=== PATIENT | male | born 1955 | race Caucasian/White ===

== ENCOUNTER 2017-05-04 03:55 | Inpatient (IN) ==
[2017-04-30 09:24] LABS: MANUAL DIFF NEEDED? NO
--- NOTE | 2017-04-30 09:24 | EKG Report ---
Test Performed on : 04/30/2017 09:10:53 AM Test Reason : PAT Blood Pressure : / mmHG Vent. Rate : 063 BPM Atrial Rate : 063 BPM P-R Int : 142 ms QRS Dur : 084 ms QT Int : 432 ms P-R-T Axes : 058 078 066 degrees QTc Int : 442 ms Normal sinus rhythm. Normal ECG No previous ECGs available Confirmed by Hang Coleman MD ([id number]) on 04/30/2017 12:51:38 PM
[2017-04-30 09:26] LABS: BASO% 0.2 % (0.0-0.8); EOS# 0.08 X1000 (0.0-0.7); EOS% 0.9 % (0.0-10.0); HEMATOCRIT 41.6 % (42.0-52.0); HEMOGLOBIN 13.7 g/dL (14.0-18.0); IMM GRAN# 0.02 X1000 (0.0-0.04); IMM GRAN% 0.2 % (0.0-0.5); LYMPH# 1.95 X1000 (1.2-3.4); LYMPH% 22.7 % (20.5-51.1); MCH 30.2 PG (27-31); MCHC 32.9 g/dL (33-37); MCV 91.6 FL (81-99); MONO# 0.73 X1000 (0.11-0.59); MONO% 8.5 % (1.7-9.3); MPV 9.1 FL (7.4-10.4); NEUT% 67.5 % (42.2-75.2); PLT 257 X1000 (130-400); RBC 4.54 XMIL (4.7-6.1)
[2017-04-30 09:41] LABS: CALCIUM 9.6 mg/dL (8.8-10.2); POTASSIUM 4.7 mmol/L (3.5-5.1)
[2017-05-04] MEDS ORDERED: QUELICIN (DOSE) ONE (08:21)
[2017-05-04] MEDS ORDERED: NORCURON ONE ×2 (08:21→14:05)
[2017-05-04] MEDS ORDERED: SODIUM CHLORIDE 0.9% 10 ML ONE ×3 (08:21→14:05)
[2017-05-04] MEDS ORDERED: KEFZOL ONE (10:05)
[2017-05-04] MEDS ORDERED: HEPARIN ONE (10:06)
[2017-05-04] MEDS ORDERED: NS 0 ML ONE (10:06)
[2017-05-04] MEDS ORDERED: LR 1,000 ML ONE (11:14)
[2017-05-04] MEDS ORDERED: KEFZOL 1 GM/D5W 1 GM/50 ML IVPB ONE (11:14)
[2017-05-04] MEDS ORDERED: DIPRIVAN 1% ONE (11:58)
[2017-05-04] MEDS ORDERED: FENTANYL ONE (11:58)
[2017-05-04] MEDS ORDERED: XYLOCAINE-MPF 2% ONE (11:59)
[2017-05-04] MEDS ORDERED: NEO-SYNEPHRINE ONE (12:02)
[2017-05-04] MEDS ORDERED: EPHEDRINE ONE (12:09)
[2017-05-04] MEDS ORDERED: NITROGLYCERIN 50 MG/D5W 0 MG/0 ML IV.SOLN ONE (12:21)
[2017-05-04] MEDS ORDERED: VERSED ONE (12:23)
[2017-05-04] MEDS ORDERED: NS 1,000 ML ONE (12:25)
[2017-05-04 13:29] LABS: URINE MICRO REVIEW NEEDED? NO; URINE SOURCE CATH
[2017-05-04 13:34] LABS: BILIRUBIN URINE NEGATIVE (NEGATIVE); BLOOD URINE NEGATIVE (NEGATIVE); COLOR YELLOW; GLUCOSE URINE NEGATIVE (NEGATIVE); LEUKOCYTES URINE NEGATIVE (NEGATIVE); NITRITE URINE NEGATIVE (NEGATIVE); PROTEIN URINE NEGATIVE (NEGATIVE); SP GRAVITY URINE 1.008; TURBIDITY URINE CLEAR (CLEAR); UR EPITHELIAL CELLS <10 /HPF (<10); URINE BACTERIA NEGATIVE /HPF; URINE RBC <10 /HPF (<10); URINE WBC <10 /HPF (<10); UROBILINOGEN URINE NORMAL (NORMAL)
[2017-05-04] MEDS ORDERED: ROBINUL ONE (15:39)
[2017-05-04] MEDS ORDERED: NEOSTIGMINE ONE (15:39)
[2017-05-04] MEDS ORDERED: MORPHINE ONE (15:41)
[2017-05-04] MEDS: MORPHINE ONE ×2 (16:52→17:00)
[2017-05-04] MEDS ORDERED: NS 1,000 ML IV SCH (17:49)
[2017-05-04] MEDS ORDERED: ZOFRAN IV PRN (17:49)
[2017-05-04] MEDS ORDERED: NS 500 ML IV ONE ×2 (19:20→21:56)
[2017-05-04] MEDS: LOPRESSOR PO SCH (20:08)
[2017-05-04] MEDS: NS 1,000 ML IV SCH ×2 (20:09→22:23)
[2017-05-04] MEDS: PERIDEX MT SCH (20:10)
[2017-05-04] MEDS: KEFZOL 1 GM/D5W 1 GM/50 ML IVPB IV SCH (20:10)
[2017-05-04 20:15] LABS: HEMATOCRIT 46.6 % (42.0-52.0); HEMOGLOBIN 15.8 g/dL (14.0-18.0)
[2017-05-04] MEDS: DILAUDID IV PRN (20:15)
--- NOTE | 2017-05-04 20:51 | OPERATIVE NOTE ---
PROCEDURE DATE: 05/04/2017 NAME OF THE PROCEDURE: Aortobifemoral bypass. SURGEON: Walter Sales MD. BOATS RENTER: ZERHA Damon Toby, Karen George. PREOP DIAGNOSIS: Aortic occlusion with claudication. POSTOPERATIVE DIAGNOSIS: Aortic occlusion with claudication. DESCRIPTION OF PROCEDURE: Satisfactory general endotracheal anesthesia was achieved. The abdomen and groins were prepped and draped in a sterile fashion. We began by incising the left groin and dissecting down to the common femoral artery surrounded with an umbilical tape at the inguinal ligament and a vessel even more distally. The bifurcation of the common femoral was a bit distal so we did not have to isolate the profunda. We did the same thing on the right side. Antibiotic sponges were placed in his groins. We then made a midline incision. Carried our incision into the abdominal cavity. We then incised the retroperitoneum down to the aorta. There was quite a bit of tissue covering the aorta, which we had to divide in order to get to the aorta. We actually divided the mesenteric vein. Another vein just above the left renal vein was ligated and divided as well. A couple of suture ligatures were used to achieve hemostasis in this tissue inferior to the pancreas. The renal vein was exposed. We then placed our Bookwalter retractor and placed the bowel within the bag. We made a retroperitoneal tunnel to the both groins from the aortic bifurcation and passed umbilical tapes to provide a tunnel for the aortobifemoral graft. We then gave the patient 7000 units of heparin systemically. After it had circulated for more than 3 minutes, we then exposed the aorta and used a cross-clamp to go just below the renal arteries. We then cut out a segment of the aorta. We measured the aorta to be about 14 mm, so we decided a 14 x 7 bifurcated graft would be appropriate. After cutting out a segment of the aorta, some venous bleeding required some additional 2-0 silk suture ligatures behind the aorta. We then had to unclamp the aorta and use a Naima to reach up into the aorta and removed clots so that we could have antegrade flow. After doing that, we had a good aggressive antegrade flow. Once again, clamped the aorta right at the renals. We then used a 14 x 7 graft and sutured it with a 3- 0 Prolene stitch beginning posteriorly and coming around anteriorly. As we finished the anastomosis, we then flushed the graft. Hemostasis was satisfactory. We did use the cuff to go around the proximal anastomosis. We sucked the blood out of the graft after we had flushed it. We then passed the one limb of the right groin, one limb to the left groin. We began with the right side and clamped off the common femoral, occluded flow distally with a vessel loop, incised the common femoral with an 11 blade and extended with the Serra scissors. We then cut the graft to match the arteriotomy. We used a 5-0 Prolene stitch to do the anastomosis from the graft to the common femoral artery. Just prior to finishing, we back bled the common femoral, flushed the external iliac and then flushed the graft. We then finished the anastomosis and allowed flow into the right side. A couple of additional stitches provided satisfactory hemostasis to this anastomosis. We left the left limb occluded while the right limb flowed satisfactorily. The antibiotic sponge was placed. We then did exactly the same procedure on the left with an arteriotomy cutting the graft to match the arteriotomy and using a 5-0 Prolene stitch to do the anastomosis. We back-bled the distal vessel and fore-bled the external iliac and then flushed the left limb of the graft as well. Again, no clots were seen and good flow was present. We finished the anastomosis and flow was established. The clamps were removed from the abdomen. We then went back and closed the retroperitoneum with a 2-0 Polysorb. I did decide to leave a drain just inferior to the pancreas because of some concern of mostly pancreatic leak from being above the renal vein and dissecting it there. So, I left the Gaurang drain above where we made the aortic anastomosis, at the inferior aspect of the pancreas. We secured the skin level with 2-0 silk, then returned the bowels out of the bag into the abdominal cavity. We closed the anterior peritoneum with a 2-0 chromic. We closed the fascia with running #2 Prolene. We irrigated out both groins with antibiotic solution and then closed both groins in 2 layers of 2-0 Polysorb. The skin was then closed at each incision with victoriano. Sterile dressings were applied. He tolerated it well. Estimated blood loss was 2000 mL. cc: Walter Sales MD
[2017-05-04] MEDS ORDERED: ALBUMIN 25% IV ONE (21:56)
[2017-05-04] MEDS ORDERED: LASIX IV ONE (22:56)
[2017-05-05] MEDS: NS 1,000 ML IV SCH ×3 (02:47→18:22)
[2017-05-05] MEDS: DILAUDID IV PRN ×6 (03:53→23:38)
[2017-05-05] MEDS: KEFZOL 1 GM/D5W 1 GM/50 ML IVPB IV SCH (04:26)
[2017-05-05 05:03] LABS: MANUAL DIFF NEEDED? NO
[2017-05-05 05:09] LABS: BASO% 0.2 % (0.0-0.8); EOS# 0.02 X1000 (0.0-0.7); EOS% 0.2 % (0.0-10.0); HEMATOCRIT 38.5 % (42.0-52.0); HEMOGLOBIN 13.4 g/dL (14.0-18.0); IMM GRAN# 0.03 X1000 (0.0-0.04); IMM GRAN% 0.2 % (0.0-0.5); LYMPH# 1.19 X1000 (1.2-3.4); LYMPH% 9.4 % (20.5-51.1); MCH 30.5 PG (27-31); MCHC 34.8 g/dL (33-37); MCV 87.7 FL (81-99); MONO# 1.09 X1000 (0.11-0.59); MONO% 8.6 % (1.7-9.3); MPV 9.5 FL (7.4-10.4); NEUT% 81.4 % (42.2-75.2); PLT 117 X1000 (130-400); RBC 4.39 XMIL (4.7-6.1)
[2017-05-05 05:27] LABS: CALCIUM 7.1 mg/dL (8.8-10.2); POTASSIUM 5.2 mmol/L (3.5-5.1)
--- NOTE | 2017-05-05 07:36 | Diag Imaging Result Doc PS360 ---
CHEST-PORTABLE - 05/05/2017 INDICATION: post op TECHNIQUE: COMPARISON: 05/25/2014 FINDINGS: Lung volumes are critically low. There is central and bibasilar crowding. Heart size is normal. IMPRESSION: Nonspecific findings. Electronically signed by Clay Rodriguez 05/05/2017 7:33 AM
[2017-05-05] MEDS: PROTONIX IV SCH (08:25)
[2017-05-05] MEDS: NORVASC PO SCH (08:30)
[2017-05-05] MEDS: LOPRESSOR PO SCH ×3 (08:30→20:28)
[2017-05-05] MEDS: PERIDEX MT SCH ×2 (08:30→20:28)
[2017-05-05] MEDS: PRINIVIL PO SCH (08:31)
[2017-05-05] MEDS ORDERED: TYLENOL PO ONE (19:20)
[2017-05-05] MEDS ORDERED: TYLENOL PO PRN (19:49)
[2017-05-05] MEDS ORDERED: LABETALOL IV ONE (20:46)
[2017-05-06 00:09] LABS: ALLEN TEST YES; BE -5.9 mmoll (-3.0-3.0); BLOOD TYPE ARTERIAL; DRAW SITE R RADIAL; METHB 1.1 % (0.0-1.5); O2(CT) 17.6 mL/dL (15.0-23.0); PCO2(98.6) 34 mmHg (35-45); SAMPLE BLOOD; SAO2 83.3 % (95.0-100.0); THB 15.5 g/dL (11.5-17.4); pH(98.6) 7.35 (7.35-7.45)
[2017-05-06 00:10] LABS: MODALITY VENTILATOR
[2017-05-06 00:11] LABS: PO2(98.6) 48 mmHg (60-100)
[2017-05-06] MEDS ORDERED: LASIX IV ONE ×2 (00:23→05:41)
[2017-05-06 02:14] LABS: ALLEN TEST YES; BE -4.7 mmoll (-3.0-3.0); BLOOD TYPE ARTERIAL; DRAW SITE R RADIAL; METHB 1.3 % (0.0-1.5); O2(CT) 14.9 mL/dL (15.0-23.0); PCO2(98.6) 31 mmHg (35-45); PO2(98.6) 51 mmHg (60-100); SAMPLE BLOOD; SAO2 90.6 % (95.0-100.0)
[2017-05-06] MEDS: DILAUDID IV PRN ×3 (02:14→22:35)
[2017-05-06] MEDS: NS 1,000 ML IV SCH ×2 (02:14→09:16)
[2017-05-06 02:15] LABS: MODALITY BI PAP
[2017-05-06] MEDS: DUONEB (A & A) INH PRN ×5 (02:55→23:06)
[2017-05-06 04:10] LABS: MANUAL DIFF NEEDED? NO
[2017-05-06 04:28] LABS: ALLEN TEST YES; BE -4.6 mmoll (-3.0-3.0); BLOOD TYPE ARTERIAL; DRAW SITE R RADIAL; METHB 1.2 % (0.0-1.5); O2(CT) 15.1 mL/dL (15.0-23.0); PCO2(98.6) 30 mmHg (35-45); PO2(98.6) 58 mmHg (60-100); SAMPLE BLOOD; SAO2 92.4 % (95.0-100.0); THB 11.9 g/dL (11.5-17.4); pH(98.6) 7.41 (7.35-7.45)
[2017-05-06 04:30] LABS: MODALITY BI PAP
[2017-05-06 04:38] LABS: BASO% 0.2 % (0.0-0.8); EOS# 0.05 X1000 (0.0-0.7); EOS% 0.3 % (0.0-10.0); HEMATOCRIT 33.9 % (42.0-52.0); HEMOGLOBIN 11.8 g/dL (14.0-18.0); IMM GRAN# 0.07 X1000 (0.0-0.04); IMM GRAN% 0.4 % (0.0-0.5); LYMPH% 7.6 % (20.5-51.1); MCH 30.9 PG (27-31); MCHC 34.8 g/dL (33-37); MCV 88.7 FL (81-99); MONO# 1.29 X1000 (0.11-0.59); MONO% 7.5 % (1.7-9.3); MPV 9.7 FL (7.4-10.4); PLT 126 X1000 (130-400); RBC 3.82 XMIL (4.7-6.1)
[2017-05-06 05:25] LABS: CALCIUM 7.2 mg/dL (8.8-10.2); POTASSIUM 4.5 mmol/L (3.5-5.1)
--- NOTE | 2017-05-06 05:49 | Diag Imaging Result Doc PS360 ---
EXAM: CHEST-PORTABLE HISTORY: tachypnea TECHNIQUE: COMPARISON: 05/05/2017 FINDINGS: Poor inspiratory effort. Heart is not enlarged. There are increased interstitial markings in the mid and lower lungs. There may be small pleural effusions. IMPRESSION: Worsening basilar infiltrates or atelectasis. Electronically signed by Panchito Grimaldo 05/06/2017 5:47 AM
--- NOTE | 2017-05-06 06:12 | Diag Imaging Result Doc PS360 ---
EXAM: CHEST-PORTABLE HISTORY: post op TECHNIQUE: Portable AP COMPARISON: 05/06/2017 at midnight FINDINGS: The lungs are poorly expanded. The heart is not enlarged. Mild increased interstitial markings in the mid and lower lungs. Questionable small right effusion. IMPRESSION: No interval improvement. Electronically signed by Panchito Grimaldo 05/06/2017 6:09 AM
[2017-05-06] MEDS: LEVAQUIN 500 MG/D5W 500 MG/100 ML IVPB IV SCH (06:13)
[2017-05-06] MEDS: PERIDEX MT SCH ×2 (09:12→20:40)
[2017-05-06] MEDS: SODIUM CHLORIDE 0.9% INJ SCH (09:12)
[2017-05-06] MEDS: PRINIVIL PO SCH (09:12)
[2017-05-06] MEDS: PROTONIX IV SCH (09:12)
[2017-05-06] MEDS: NORVASC PO SCH (09:12)
[2017-05-06] MEDS: LOPRESSOR PO SCH ×2 (09:12→20:40)
[2017-05-06] MEDS: CLINDAMYCIN 900 MG/NS 900 MG/50 ML IVPB IV SCH ×2 (09:12→15:20)
[2017-05-06] MEDS: LASIX IV SCH ×2 (11:07→18:58)
--- NOTE | 2017-05-06 13:17 | CONSULTATION ---
DATE OF CONSULTATION: 05/06/2017 REQUESTING PHYSICIAN: Dr. Sales. REASON FOR CONSULTATION: Respiratory failure. HISTORY OF PRESENT ILLNESS: Mr. Turner is a 61-year-old, white male, with a greater than 90 pack year history for tobacco, ongoing tobacco use, with severe peripheral vascular disease. The patient underwent an aortobifemoral bypass for aortic occlusion with claudication. He underwent that procedure on 05/04/2017. Patient's oxygen requirements have been increasing. He required BiPAP last evening for significant increased work of breathing. PAST MEDICAL HISTORY: 1. Hypertension. 2. Dyslipidemia. 3. History of stroke with residual right arm weakness. 4. Arthritis. 5. Severe peripheral vascular disease. SOCIAL HISTORY: Ongoing tobacco use. FAMILY HISTORY: Not immediately available for review. REVIEW OF SYSTEMS: Limited due to patient's shortness of breath at rest. PHYSICAL EXAMINATION: General: Reveals a 61-year-old, white male, who appears older than his stated age. He is on BiPAP. His oxygen saturations dropped into the low 80s if his BiPAP is removed. Blood pressure 137/78, heart rate 106, respiration rate 28-36, oxygen saturation 96% on BiPAP. HEENT: Pupils are equal and reactive. Oropharynx is clear. Neck: Supple. Chest: Reveals shallow breath sounds bilaterally with bilateral crackles. Cardiac Exam: Regular rate. Normal S1, normal S2. Abdomen: Soft. Extremities: Warm to the touch. The patient has faint pulses. LABORATORIES: Chest x-ray reveals shallow expansion with increased interstitial markings bilaterally. Arterial blood gas, pH 7.41, pCO2 of 30, PO2 of 58. Chemistry: Sodium 141, potassium 4.5, chloride 109, bicarbonate 17, anion gap 15, BUN 20, creatinine 1.3. IMPRESSION: A 61-year-old with hypoxemic respiratory failure, hyperchloremic metabolic acidosis without significant anion gap, mild blood loss anemia with a hemoglobin 11.8, with mild leukocytosis. The patient's chest x-ray reveals shallow expansion but he does not have significant abdominal distention. No prior chest x-ray available for review. No prior PFTs available for review. It is possible that he has interstitial edema leading to a restrictive physiology but cannot completely rule out an underlying neuromuscular weakness although he does not have hypercapnic respiratory failure. His hyperchloremic metabolic acidosis is associated with his IV resuscitation which has been discontinued. RECOMMENDATION: 1. Continue BiPAP. The patient will be followed for evidence of progressive decline requiring intubation. 2. Diuretics as tolerated. Patient's blood pressure is adequate but he is currently on 3 blood pressure medications. He is on an SHERYL inhibitor, calcium channel reggie, and a beta reggie. I will discontinue the lisinopril and Norvasc but we will continue his beta reggie to help decrease risk of cardiovascular events in the postoperative period. 3. Smoking cessation will be recommended when he has clinical improvement. 4. Continue bronchodilators for bronchial hygiene and presumptive underlying COPD. 5. Continue PPI for his known gastroesophageal reflux. 6. Additional recommendations pending hospital course. cc: MD Walter Weinstein MD
[2017-05-06 17:48] LABS: ALLEN TEST YES; BE -0.6 mmoll (-3.0-3.0); BLOOD TYPE ARTERIAL; DRAW SITE R RADIAL; METHB 1.4 % (0.0-1.5); MODALITY BI PAP; O2(CT) 13.6 mL/dL (15.0-23.0); PCO2(98.6) 30 mmHg (35-45); PO2(98.6) 57 mmHg (60-100); SAMPLE BLOOD; SAO2 93.6 % (95.0-100.0); THB 10.6 g/dL (11.5-17.4); pH(98.6) 7.48 (7.35-7.45)
[2017-05-07] MEDS ORDERED: NS 500 ML IV ONE (00:07)
[2017-05-07] MEDS: CLINDAMYCIN 900 MG/NS 900 MG/50 ML IVPB IV SCH ×3 (00:14→16:49)
[2017-05-07] MEDS: DUONEB (A & A) INH PRN ×6 (03:04→22:51)
[2017-05-07 04:15] LABS: ALLEN TEST YES; BE -1.7 mmoll (-3.0-3.0); BLOOD TYPE ARTERIAL; DRAW SITE R RADIAL; METHB 1.1 % (0.0-1.5); O2(CT) 15.4 mL/dL (15.0-23.0); PCO2(98.6) 29 mmHg (35-45); PO2(98.6) 73 mmHg (60-100); SAMPLE BLOOD; THB 11.5 g/dL (11.5-17.4); pH(98.6) 7.47 (7.35-7.45)
[2017-05-07 04:17] LABS: MODALITY BI PAP
[2017-05-07 04:51] LABS: BASO% 0.1 % (0.0-0.8); HEMATOCRIT 27.8 % (42.0-52.0); HEMOGLOBIN 9.3 g/dL (14.0-18.0); IMM GRAN# 0.02 X1000 (0.0-0.04); IMM GRAN% 0.2 % (0.0-0.5); LYMPH# 0.81 X1000 (1.2-3.4); LYMPH% 8.5 % (20.5-51.1); MANUAL DIFF NEEDED? NO; MCH 30.2 PG (27-31); MCHC 33.5 g/dL (33-37); MCV 90.3 FL (81-99); MONO# 0.52 X1000 (0.11-0.59); MONO% 5.5 % (1.7-9.3); MPV 9.6 FL (7.4-10.4); NEUT% 85.7 % (42.2-75.2); PLT 108 X1000 (130-400); RBC 3.08 XMIL (4.7-6.1)
[2017-05-07 04:52] LABS: ALBUMIN 2.8 g/dL (3.5-5.0); CALCIUM 7.3 mg/dL (8.8-10.2); MAGNESIUM 1.5 mg/dL (1.5-2.7); POTASSIUM 3.9 mmol/L (3.5-5.1); TOTAL BILIRUBIN 0.48 mg/dL (0.20-1.00); TOTAL PROTEIN 4.7 g/dL (6.3-8.3)
[2017-05-07] MEDS: LEVAQUIN 500 MG/D5W 500 MG/100 ML IVPB IV SCH (05:51)
[2017-05-07] MEDS ORDERED: LEVOPHED 8 MG in D5 1/2 NS 250 ML IV SCH (07:00)
--- NOTE | 2017-05-07 07:25 | Diag Imaging Result Doc PS360 ---
EXAM: CHEST-PORTABLE HISTORY: resp failure TECHNIQUE: AP portable erect at 0530 COMMENT: The inspiration is suboptimal as it was on 05/06/2017. There is slight improvement in the basilar interstitial opacities seen previously. Otherwise has been no significant change. IMPRESSION: Slightly improved interstitial edema. Electronically signed by Amauri Cifuentes 05/07/2017 7:23 AM
[2017-05-07] MEDS: NS 1,000 ML IV SCH (08:36)
[2017-05-07] MEDS: PERIDEX MT SCH ×2 (08:36→21:20)
[2017-05-07] MEDS: SODIUM CHLORIDE 0.9% INJ SCH (08:36)
[2017-05-07] MEDS: PROTONIX IV SCH (08:36)
[2017-05-07] MEDS: LOPRESSOR PO SCH ×2 (08:36→21:20)
[2017-05-07] MEDS: DILAUDID IV PRN ×3 (08:37→19:38)
--- NOTE | 2017-05-07 09:42 | Diag Imaging Result Doc PS360 ---
KUB ABDOMEN - 05/07/2017 INDICATION: distention TECHNIQUE: COMPARISON: 04/23/2017 FINDINGS: Portable technique was used. There is patient motion artifact. Detail is very poor. There are surgical skin victoriano throughout the abdomen and right thigh. No definite obstruction or free air. IMPRESSION: No definite obstruction or free air. Electronically signed by Clay Rodriguez 05/07/2017 9:40 AM
[2017-05-07] MEDS: CLINIMIX E 4.25%-5% SOLUTION 1,000 ML IV SCH (11:24)
[2017-05-07] MEDS ORDERED: POTASSIUM PHOSPHATE 20 MMOL in NS 250 ML IV ONE (18:00)
[2017-05-08] MEDS: CLINDAMYCIN 900 MG/NS 900 MG/50 ML IVPB IV SCH ×3 (00:08→15:09)
[2017-05-08] MEDS: DILAUDID IV PRN ×5 (00:08→23:51)
[2017-05-08] MEDS: CLINIMIX E 4.25%-5% SOLUTION 1,000 ML IV SCH ×2 (00:15→13:39)
[2017-05-08] MEDS: DUONEB (A & A) INH PRN ×5 (03:10→19:30)
[2017-05-08 04:15] LABS: ALLEN TEST YES; BE 0.6 mmoll (-3.0-3.0); BLOOD TYPE ARTERIAL; DRAW SITE R RADIAL; METHB 1.2 % (0.0-1.5); O2(CT) 11.9 mL/dL (15.0-23.0); PCO2(98.6) 33 mmHg (35-45); PO2(98.6) 73 mmHg (60-100); SAMPLE BLOOD; SAO2 96.5 % (95.0-100.0); THB 8.9 g/dL (11.5-17.4); pH(98.6) 7.47 (7.35-7.45)
[2017-05-08 04:16] LABS: MODALITY BI PAP
[2017-05-08] MEDS: LEVAQUIN 500 MG/D5W 500 MG/100 ML IVPB IV SCH (05:34)
[2017-05-08 05:46] LABS: AGAP 13; ALBUMIN 2.3 g/dL (3.5-5.0); ALKALINE PHOSPHATASE 63 U/L (32-122); BUN 31 mg/dL (8-22); CALCIUM 7.6 mg/dL (8.8-10.2); CHLORIDE 109 mmol/L (98-107); COSMO 294; GOT 25 U/L (10-34); GPT 10 U/L (10-44); POTASSIUM 4.1 mmol/L (3.5-5.1); SODIUM 144 mmol/L (136-145); TCO2 22 mmol/L (25-35); TOTAL BILIRUBIN 0.31 mg/dL (0.20-1.00); TOTAL PROTEIN 5.6 g/dL (6.3-8.3)
[2017-05-08] MEDS: SODIUM CHLORIDE 0.9% INJ SCH (08:37)
[2017-05-08] MEDS: PROTONIX IV SCH (08:37)
[2017-05-08] MEDS: LOPRESSOR PO SCH ×2 (08:37→20:24)
[2017-05-08] MEDS: PERIDEX MT SCH ×2 (08:37→20:27)
--- NOTE | 2017-05-08 10:52 | Diag Imaging Result Doc PS360 ---
EXAM: CHEST-PORTABLE HISTORY: abnormal exam TECHNIQUE: Portable upright AP COMPARISON: 05/07/2017 FINDINGS: The lungs are poorly expanded. The heart is not enlarged. Questionable tiny right pleural effusion. There are mild increased interstitial markings throughout both lungs. The overall appearance is quite similar to that of the prior exam. IMPRESSION: No interval improvement. Electronically signed by Panchito Grimaldo 05/08/2017 10:50 AM
[2017-05-08] MEDS ORDERED: LASIX IV ONE (21:00)
[2017-05-09] MEDS: CLINDAMYCIN 900 MG/NS 900 MG/50 ML IVPB IV SCH ×4 (00:02→23:25)
[2017-05-09] MEDS: CLINIMIX E 4.25%-5% SOLUTION 1,000 ML IV SCH ×2 (03:11→15:22)
[2017-05-09] MEDS: DILAUDID IV PRN ×4 (04:21→19:41)
[2017-05-09 04:33] LABS: ALLEN TEST YES; BE 1.4 mmoll (-3.0-3.0); BLOOD TYPE ARTERIAL; DRAW SITE R RADIAL; O2(CT) 21.4 mL/dL (15.0-23.0); PCO2(98.6) 36 mmHg (35-45); PO2(98.6) 56 mmHg (60-100); SAMPLE BLOOD; SAO2 90.6 % (95.0-100.0); THB 17.3 g/dL (11.5-17.4); pH(98.6) 7.45 (7.35-7.45)
[2017-05-09 04:34] LABS: MODALITY NRB
[2017-05-09] MEDS: LEVAQUIN 500 MG/D5W 500 MG/100 ML IVPB IV SCH (05:34)
[2017-05-09 05:52] LABS: MANUAL DIFF NEEDED? NO
[2017-05-09 06:02] LABS: MAGNESIUM 2.1 mg/dL (1.5-2.7)
[2017-05-09 06:03] LABS: BASO% 0.2 % (0.0-0.8); EOS# 0.06 X1000 (0.0-0.7); EOS% 0.7 % (0.0-10.0); HEMOGLOBIN 9.6 g/dL (14.0-18.0); IMM GRAN# 0.06 X1000 (0.0-0.04); IMM GRAN% 0.7 % (0.0-0.5); LYMPH# 0.93 X1000 (1.2-3.4); LYMPH% 11.3 % (20.5-51.1); MCH 30.5 PG (27-31); MCHC 33.1 g/dL (33-37); MCV 92.1 FL (81-99); MONO# 0.76 X1000 (0.11-0.59); MONO% 9.2 % (1.7-9.3); MPV 9.8 FL (7.4-10.4); NEUT% 77.9 % (42.2-75.2); PLT 143 X1000 (130-400); RBC 3.15 XMIL (4.7-6.1)
[2017-05-09 06:33] LABS: AGAP 17; BUN 33 mg/dL (8-22); CALCIUM 8.7 mg/dL (8.8-10.2); CHLORIDE 105 mmol/L (98-107); COSMO 292; POTASSIUM 4.1 mmol/L (3.5-5.1); SODIUM 143 mmol/L (136-145); TCO2 21 mmol/L (25-35)
[2017-05-09] MEDS: DUONEB (A & A) INH PRN ×3 (07:45→16:05)
--- NOTE | 2017-05-09 08:09 | Diag Imaging Result Doc PS360 ---
EXAM: CHEST-PORTABLE INDICATION: abnormal exam TECHNIQUE: One view COMPARISON: 05/08/2017 FINDINGS: Inspiration is suboptimal. There is bibasilar subsegmental atelectasis that is slightly more prominent than the previous study. There is suggestion of a trace right effusion that is stable. There is likely a trace left effusion as well that has developed. No new consolidations are identified, otherwise. Cardiac silhouette is stable. IMPRESSION: Worsening subsegmental atelectasis at the lung bases and suggestion of trace bilateral effusions. Electronically signed by Yonas Thompson 05/09/2017 8:07 AM
[2017-05-09] MEDS: PROTONIX IV SCH (08:28)
[2017-05-09] MEDS: SODIUM CHLORIDE 0.9% INJ SCH (08:28)
[2017-05-09] MEDS: LOPRESSOR PO SCH ×2 (08:28→20:20)
[2017-05-09] MEDS: PERIDEX MT SCH ×2 (08:28→20:20)
[2017-05-09] MEDS ORDERED: LASIX IV ONE (12:34)
--- NOTE | 2017-05-09 13:00 | PROGRESS NOTE ---
DATE: 05/09/2017 SUBJECTIVE: The patient denies any significant abdominal pain, nausea or vomiting. He reports passing flatus. OBJECTIVE: Vital Signs: He is afebrile. His vital signs are stable. He does remain on a non- rebreather with oxygen saturations in the low 90s. Urine output is 2860 mL. He did develop some urinary retention yesterday, after the Sharma was removed. The Sharma had to be replaced. General: He is awake and alert, in no acute distress. Cardiovascular: Regular rate and rhythm. Respiratory: Bilateral breath sounds. No work of breathing. Abdomen: Soft, nondistended. He does have some bowel sounds. Incisions are clean, dry, and intact. Extremities: Warm. LABORATORY: White blood cell count 8, hemoglobin 9.6. Metabolic profile reviewed and unremarkable. ABG shows pH 7.5, pCO2 36, PaO2 56, bicarbonate 26, base excess 1.4. Chest x-ray today shows bilateral trace pleural effusions and increasing bibasilar atelectasis. ASSESSMENT/PLAN: A 61-year-old male, postoperative day 4, aortobifemoral bypass with respiratory insufficiency. The athletic agent has been consulted. He remains on significant oxygen support. He will remain in the ICU for now. I am going to advance his diet to a soft diet. We will keep the Sharma in due to the urinary retention. We have encouraged him to be out of bed several times a day. cc: MD Walter Rojas MD
--- NOTE | 2017-05-09 15:21 | CONSULTATION ---
DATE OF CONSULTATION: 05/09/2017 HISTORY OF PRESENT ILLNESS: Mr. Turner who is a 61-year-old white gentleman had aortofemoral bypass surgery performed by Dr. Sales on 05/04/2017. Postoperatively he has been followed by Dr. Cobos and his associates and he has developed pneumonia. He is slightly more short of breath. He has a history of hypertension and in the past has been a chronic heavy smoker. He smokes about 1.5 packs of cigarettes per day. He has mild COPD. He had severe claudication before he came in. Initial chest x-ray did reveal some nonspecific findings, however, the last chest x-ray has revealed the presence of worsening of the subsegmental atelectasis in the lung bases with minimal pleural effusions. I was asked to see him for medical back up today. PHYSICAL EXAMINATION: Vital Signs: His vital signs reveal that his pulse is 103 beats per minute. O2 saturation is 99%. He has been on BiPAP. He is afebrile. Blood pressure is normal. HEENT: The head is normocephalic. Pupils are equal, round, and reactive to light and accommodation. ENT exam is grossly unremarkable. Neck: JVP is normal. Respiratory: The lungs reveal some basilar rales on both sides. Cardiovascular: PMI is in the normal position. Gastrointestinal: The abdomen is nondistended. He had aortofemoral bypass surgery. Extremities: There is no leg edema or calf tenderness. LABORATORY DATA: His hemoglobin is 9.6 and hematocrit 29. White count has come down from 12.69 to 8.24 as of today. Blood gases revealed mild hypoxia; pO2 is 56, pCO2 36, and pH 7.45 with oxyhemoglobin 88.2. Electrolytes are stable. BUN and creatinine are basically unchanged except the BUN has gone up to 33. He has been on IV clindamycin as well as IV levofloxacin every 24 hours. He also got some furosemide 40 mg daily. PLAN: I personally agree with the current management. We will do some more lab work in the morning, repeat a chest x-ray, and then decided about further management. In the meantime, I would like to continue the current management. Thank you very much for asking me to see him for Dr. Hackett. cc: MD Walter Lawson MD
[2017-05-10] MEDS: DILAUDID IV PRN ×2 (00:55→11:34)
[2017-05-10 04:30] LABS: MANUAL DIFF NEEDED? NO
[2017-05-10 04:30] LABS: ALLEN TEST YES; BE 3.6 mmoll (-3.0-3.0); BLOOD TYPE ARTERIAL; DRAW SITE R RADIAL; METHB 0.6 % (0.0-1.5); PCO2(98.6) 39 mmHg (35-45); PO2(98.6) 76 mmHg (60-100); SAMPLE BLOOD; SAO2 97.6 % (95.0-100.0); THB 9.6 g/dL (11.5-17.4); pH(98.6) 7.46 (7.35-7.45)
[2017-05-10 04:32] LABS: MODALITY BI PAP
[2017-05-10 04:44] LABS: BASO% 0.8 % (0.0-0.8); EOS# 0.12 X1000 (0.0-0.7); EOS% 1.2 % (0.0-10.0); HEMATOCRIT 28.5 % (42.0-52.0); HEMOGLOBIN 9.4 g/dL (14.0-18.0); IMM GRAN# 0.12 X1000 (0.0-0.04); IMM GRAN% 1.2 % (0.0-0.5); LYMPH# 1.23 X1000 (1.2-3.4); LYMPH% 12.6 % (20.5-51.1); MCH 30.4 PG (27-31); MCV 92.2 FL (81-99); MONO# 0.99 X1000 (0.11-0.59); MONO% 10.1 % (1.7-9.3); MPV 9.4 FL (7.4-10.4); NEUT% 74.1 % (42.2-75.2); PLT 160 X1000 (130-400); RBC 3.09 XMIL (4.7-6.1)
[2017-05-10 04:51] LABS: AGAP 13; BUN 33 mg/dL (8-22); CALCIUM 8.5 mg/dL (8.8-10.2); CHLORIDE 101 mmol/L (98-107); COSMO 284; POTASSIUM 4.4 mmol/L (3.5-5.1); SODIUM 138 mmol/L (136-145); TCO2 24 mmol/L (25-35)
[2017-05-10] MEDS: LEVAQUIN 500 MG/D5W 500 MG/100 ML IVPB IV SCH (04:51)
[2017-05-10] MEDS: CLINIMIX E 4.25%-5% SOLUTION 1,000 ML IV SCH ×2 (04:53→18:29)
[2017-05-10] MEDS: CLINDAMYCIN 900 MG/NS 900 MG/50 ML IVPB IV SCH ×3 (07:19→23:12)
[2017-05-10] MEDS: DUONEB (A & A) INH PRN ×3 (07:47→15:06)
--- NOTE | 2017-05-10 08:10 | Diag Imaging Result Doc PS360 ---
EXAM: CHEST-PORTABLE INDICATION: pneumonia TECHNIQUE: One view COMPARISON: 05/09/2017 FINDINGS: Inspiration is suboptimal. Bibasilar atelectasis and/or infiltrate, worse on the left, is essentially stable. Small bilateral effusions are unchanged. No new consolidation is appreciated. Cardiac silhouette is stable. IMPRESSION: Stable chest. Electronically signed by Yonas Thompson 05/10/2017 8:07 AM
[2017-05-10] MEDS: LOPRESSOR PO SCH ×2 (08:33→20:26)
[2017-05-10] MEDS: PROTONIX IV SCH (08:33)
[2017-05-10] MEDS: PERIDEX MT SCH ×2 (08:37→20:26)
--- NOTE | 2017-05-10 10:28 | PROGRESS NOTE ---
DATE: 05/10/2017 Mr. Turner is doing about the same. He is stable. Vital signs are stable. He is alert, sitting in the chair, trying to eat. His lungs still reveal some congestion. Chest x-ray done this morning reveals pleural effusion on the left side. BNP was above 1000. We are doing echocardiogram and will give him Lasix daily. cc: MD Walter Lawson MD
--- NOTE | 2017-05-10 10:33 | PROGRESS NOTE ---
DATE: 05/10/2017 SUBJECTIVE: The patient denies significant abdominal pain. No nausea or vomiting. He is eating. OBJECTIVE: Vital Signs: He is afebrile. Vital signs are stable. Urine output 2465 mL. General: He is awake and alert, oriented x3. No acute distress. CV: Regular rate and rhythm. Respiratory: No work of breathing. GI: Soft. Appropriately tender. Nondistended. He has bowel sounds. His incisions are clean, dry, and intact. Extremities: No clubbing, cyanosis, or edema. His feet are warm and he moves his extremities well. Laboratory: White blood cell count 9000, hemoglobin 9. BUN 33, creatinine 1.1. ASSESSMENT AND PLAN: A 61-year-old male status post aortobifemoral bypass, postoperative day 5. He has had some respiratory insufficiency postoperatively. He appears to be doing reasonably well aside from some continued need for oxygen support. He remains on a nonrebreather. He will be transferred to the floor when the pulmonary status stabilizes. We appreciate the assistance of the manager etl. We will start him on Lovenox for deep venous thrombosis prophylaxis. cc: MD Walter Rojas MD
[2017-05-10] MEDS: LOVENOX SUBQ SCH (11:34)
[2017-05-10] MEDS ORDERED: LASIX IV ONE (13:00)
--- NOTE | 2017-05-10 13:58 | ECHO REPORT ---
ORDER DATE: 05/10/2017 ECHOCARDIOGRAPHIC MEASUREMENTS: 1. Interventricular septum 0.9. Left ventricular posterior wall 1.0. Diastolic diameter 4.0. Left atrium 3.7. Aorta 2.9. Normal left ventricular cavity size. Estimated ejection fraction of 60%. Aortic valve leaflets are trileaflet. Pulmonic valve was normal. Tricuspid valve was normal. Mitral valve was normal. 2. There is trace to mild mitral regurgitation. Mild tricuspid regurgitation. Peak velocity across the tricuspid valve was 3 m/sec. Pulmonary artery systolic pressure 46 mmHg. 3. There is no aortic stenosis or regurgitation. 4. There is no pericardial effusion or obvious intracardiac mass or thrombus seen. cc: MD Maykel Arita MD Robert C. Walker, MD
[2017-05-11] MEDS: DILAUDID IV PRN ×4 (04:45→20:53)
[2017-05-11 04:52] LABS: ALLEN TEST YES; BLOOD TYPE ARTERIAL; DRAW SITE R RADIAL; METHB 0.7 % (0.0-1.5); O2(CT) 12.4 mL/dL (15.0-23.0); PCO2(98.6) 38 mmHg (35-45); PO2(98.6) 118 mmHg (60-100); SAMPLE BLOOD; SAO2 98.7 % (95.0-100.0); SRATE 6 BPM; THB 8.9 g/dL (11.5-17.4)
[2017-05-11] MEDS: LEVAQUIN 500 MG/D5W 500 MG/100 ML IVPB IV SCH (04:52)
[2017-05-11 04:53] LABS: MODALITY BI PAP
[2017-05-11 05:03] LABS: AGAP 12; BUN 33 mg/dL (8-22); CALCIUM 8.4 mg/dL (8.8-10.2); CHLORIDE 99 mmol/L (98-107); COSMO 283; POTASSIUM 4.4 mmol/L (3.5-5.1); SODIUM 138 mmol/L (136-145); TCO2 27 mmol/L (25-35)
[2017-05-11 05:44] LABS: BASO% 0.1 % (0.0-0.8); EOS# 0.15 X1000 (0.0-0.7); HEMATOCRIT 27.2 % (42.0-52.0); HEMOGLOBIN 8.9 g/dL (14.0-18.0); LYMPH# 0.98 X1000 (1.2-3.4); LYMPH% 12.9 % (20.5-51.1); MANUAL DIFF NEEDED? YES; MCH 30.8 PG (27-31); MCHC 32.7 g/dL (33-37); MCV 94.1 FL (81-99); MONO# 0.81 X1000 (0.11-0.59); MONO% 10.7 % (1.7-9.3); MPV 9.2 FL (7.4-10.4); NEUT% 74.3 % (42.2-75.2); PLT 166 X1000 (130-400); RBC 2.89 XMIL (4.7-6.1)
--- NOTE | 2017-05-11 05:52 | Diag Imaging Result Doc PS360 ---
EXAM: CHEST-1 VIEW HISTORY: resp failure TECHNIQUE: Portable COMPARISON: 05/10/2017 FINDINGS: There is a small left-sided pleural effusion. There is atelectasis or small infiltrate in the left base. Heart is not enlarged. Minimal increased markings in the medial right base are similar to the prior exam. The overall appearance is unchanged. IMPRESSION: Stable chest. Electronically signed by Panchito Grimaldo 05/11/2017 5:50 AM
--- NOTE | 2017-05-11 07:13 | PROGRESS NOTE ---
DATE: 05/11/2017 SUBJECTIVE: Mr. Turner is doing some better. He does have mild cough. No expectoration. The patient did have a bowel movement. No nausea or vomiting. No typical chest pain. History part limited. The patient is status post aortofemoral bypass. Admission history and physical, Pulmonary consult noted. Known case of COPD, hypertension, coronary artery disease, history of CVA and expressive aphasia, hyperlipidemia. OBJECTIVE: Vital Signs: Noted. Neck: Supple. No JVD. Lungs: Bibasilar crepitation. Occasional wheezing. CVS: S1 and S2 heard. Abdomen: Soft. No distention. Bowel sounds present. Extremities: No cyanosis, clubbing. No acute DVT. GOLD TOOLER: Alert, awake, able to move all 4 limbs. LABORATORY DATA: Today, hemoglobin 8.9, hematocrit 27.2, WBC count 7.58, platelet count 166,000. Blood gas: PH 7.5, pCO2 of 38, PO2 of 118. Electrolytes: BUN 33, creatinine 1.1. IMPRESSION AND PLAN: Overall, the patient is doing fair. The patient's medical problems include hypoxemic respiratory failure, chronic obstructive pulmonary disease, hyperlipidemia, history of cerebrovascular accident, peripheral vascular disease, status post surgery, blood loss anemia. Lab and medication noted. Will continue current treatment and close observation. Overall plan discussed with the patient, and he is in agreement. cc: MD Walter Chowdhury MD
[2017-05-11 08:51] LABS: BANDS 2 % (0-1); EOS 6 % (1-10); LYMPHS 12 % (21-51); MONO 4 % (1-9)
[2017-05-11] MEDS: LOPRESSOR PO SCH ×2 (08:51→20:08)
[2017-05-11] MEDS: PERIDEX MT SCH ×2 (08:51→20:33)
[2017-05-11] MEDS: LASIX IV SCH (08:51)
[2017-05-11] MEDS: PRINIVIL PO SCH (08:51)
[2017-05-11] MEDS: CLINIMIX E 4.25%-5% SOLUTION 1,000 ML IV SCH ×2 (09:00→20:32)
[2017-05-11] MEDS: CLINDAMYCIN 900 MG/NS 900 MG/50 ML IVPB IV SCH ×3 (09:00→23:47)
[2017-05-11] MEDS: FLOMAX PO SCH (09:00)
[2017-05-11] MEDS: LOVENOX SUBQ SCH (09:15)
[2017-05-11] MEDS: DUONEB (A & A) INH PRN ×4 (09:34→23:36)
[2017-05-12 04:31] LABS: ALLEN TEST YES; BE 5.1 mmoll (-3.0-3.0); BLOOD TYPE ARTERIAL; DRAW SITE R RADIAL; METHB 1.1 % (0.0-1.5); MODALITY NRB; O2(CT) 12.3 mL/dL (15.0-23.0); PCO2(98.6) 39 mmHg (35-45); PO2(98.6) 76 mmHg (60-100); SAMPLE BLOOD; SAO2 97.1 % (95.0-100.0); THB 9.2 g/dL (11.5-17.4); pH(98.6) 7.48 (7.35-7.45)
[2017-05-12] MEDS: LEVAQUIN 500 MG/D5W 500 MG/100 ML IVPB IV SCH (05:13)
[2017-05-12] MEDS: PRILOSEC PO SCH (06:47)
--- NOTE | 2017-05-12 07:00 | PROGRESS NOTE ---
DATE: 05/11/2017 SUBJECTIVE: Mr. Turner is doing better. Does have mild cough, no expectoration. No typical chest pain. The patient claims to office last bowel movement was bloody, no abdominal pain. No typical chest pain or palpitations. The patient has a Sharma catheter. OBJECTIVE: His vital signs noted.Neck: Supple. No JVD. Lungs: Bibasilar crepitations. Heart: S1 and S2 heard. Abdomen: Soft, globular. Bowel sounds present. Extremities: No cyanosis, clubbing. No acute DVT. FRONT END DRUPAL DEVELOPER: Alert, awake. Able to move all 4 limbs. LABORATORY DATA: Blood gas done this morning, pH 7.48, pCO2 39, PO2 was 76. CONSIDERATION: 1. Respiratory failure. 2. Hypertension. 3. Hyperlipidemia. 4. BPH. 5. Rectal bleed. I am going to check appropriate labs. Continue rest of the treatment. Close observation. The patient is status post aortofemoral bypass. cc: MD Walter Chowdhury MD
[2017-05-12 07:23] LABS: MANUAL DIFF NEEDED? NO
[2017-05-12 07:30] LABS: BASO% 0.1 % (0.0-0.8); EOS# 0.14 X1000 (0.0-0.7); EOS% 1.8 % (0.0-10.0); HEMATOCRIT 30.1 % (42.0-52.0); HEMOGLOBIN 9.6 g/dL (14.0-18.0); IMM GRAN% 1.3 % (0.0-0.5); LYMPH% 10.4 % (20.5-51.1); MCH 29.7 PG (27-31); MCHC 31.9 g/dL (33-37); MCV 93.2 FL (81-99); MONO# 0.52 X1000 (0.11-0.59); MONO% 6.8 % (1.7-9.3); MPV 9.2 FL (7.4-10.4); NEUT% 79.6 % (42.2-75.2); PLT 203 X1000 (130-400); RBC 3.23 XMIL (4.7-6.1)
[2017-05-12] MEDS: DUONEB (A & A) INH PRN ×3 (07:47→15:29)
[2017-05-12 07:51] LABS: ALBUMIN 2.9 g/dL (3.5-5.0); CALCIUM 8.5 mg/dL (8.8-10.2); POTASSIUM 4.3 mmol/L (3.5-5.1); TOTAL BILIRUBIN 0.38 mg/dL (0.20-1.00); TOTAL PROTEIN 6.7 g/dL (6.3-8.3)
[2017-05-12] MEDS: FLOMAX PO SCH (08:28)
[2017-05-12] MEDS: PRINIVIL PO SCH (08:28)
[2017-05-12] MEDS: PERIDEX MT SCH ×2 (08:28→21:33)
[2017-05-12] MEDS: LASIX IV SCH (08:28)
[2017-05-12] MEDS: LOPRESSOR PO SCH ×2 (08:28→21:33)
[2017-05-12] MEDS: LOVENOX SUBQ SCH ×2 (08:29→16:03)
[2017-05-12] MEDS: CLINDAMYCIN 900 MG/NS 900 MG/50 ML IVPB IV SCH ×2 (08:29→16:02)
[2017-05-12] MEDS: NORCO-10 PO PRN ×2 (16:16→21:32)
[2017-05-13] MEDS: CLINDAMYCIN 900 MG/NS 900 MG/50 ML IVPB IV SCH ×4 (01:16→23:42)
[2017-05-13] MEDS: LEVAQUIN 500 MG/D5W 500 MG/100 ML IVPB IV SCH (05:06)
[2017-05-13] MEDS: PRILOSEC PO SCH (06:12)
--- NOTE | 2017-05-13 06:50 | PROGRESS NOTE ---
DATE: 05/13/2017 SUBJECTIVE: Mr. Turner is doing fair. He denied any bleeding. No chest pain or palpitation. Oral intake is fair. No nausea or vomiting. The history part was limited. The patient does have expressive aphasia. The patient is status post aortobifemoral bypass. OBJECTIVE: Vital Signs: His vital signs are noted. Neck: Supple. No JVD. Lungs: Bibasilar crepitations. Heart: S1 and S2 heard. Abdomen: Soft, globular. Bowel sounds present. Extremities: No cyanosis, clubbing. No acute DVT. Central Nervous System: Alert, awake, able to move all 4 limbs. LABORATORY DATA: The lab data done today, hemoglobin 9.6, hematocrit 30.1, WBC count 7.66, platelet count 203,000. Blood gas results reviewed. Electrolytes, BUN 38 and creatinine 1.3. ASSESSMENT AND PLAN: The patient denied any rectal bleed. Overall, the patient is doing better. His problems include chronic obstructive pulmonary disease, acute on chronic respiratory failure. The patient is still requiring a higher concentration of oxygen. Blood loss anemia, hyperlipidemia, history of cerebrovascular accident. Laboratories and medications noted. We will continue the current treatment. cc: MD Walter Chowdhury MD
[2017-05-13] MEDS: DUONEB (A & A) INH PRN ×4 (07:28→19:25)
--- NOTE | 2017-05-13 08:24 | Diag Imaging Result Doc PS360 ---
EXAM: CHEST-2 VIEWS INDICATION: abnormal exam TECHNIQUE: 2 views COMPARISON: 05/11/2017 FINDINGS: Inspiration is suboptimal. There is bibasilar atelectasis that is probably marginally worse than the previous study. Superimposed infiltrate is possible. A trace left pleural effusion is unchanged. Otherwise, no new consolidations appreciated. Cardiac silhouette is stable. IMPRESSION: Slight worsening of atelectasis and/or infiltrate at the lung bases. Electronically signed by Yonas Thompson 05/13/2017 8:22 AM
[2017-05-13] MEDS: PERIDEX MT SCH ×2 (10:05→20:13)
[2017-05-13] MEDS: LOVENOX SUBQ SCH (10:08)
[2017-05-13] MEDS: LASIX IV SCH (10:14)
[2017-05-13] MEDS: LOPRESSOR PO SCH ×2 (10:14→20:13)
[2017-05-13] MEDS: FLOMAX PO SCH (10:14)
[2017-05-13] MEDS: PRINIVIL PO SCH (15:03)
[2017-05-13] MEDS: NORCO-10 PO PRN (20:13)
[2017-05-14] MEDS: PRILOSEC PO SCH ×2 (05:40→06:09)
[2017-05-14] MEDS: LEVAQUIN 500 MG/D5W 500 MG/100 ML IVPB IV SCH (05:40)
[2017-05-14 06:05] LABS: CALCIUM 8.5 mg/dL (8.8-10.2); POTASSIUM 4.3 mmol/L (3.5-5.1)
--- NOTE | 2017-05-14 07:23 | PROGRESS NOTE ---
DATE: 05/14/2017 SUBJECTIVE: Mr. Turner is doing better. He denied any high-grade fever or chills, mild cough and no expectoration. No nausea or vomiting and tolerating food well. The patient is on IV antibiotics. Denied any diarrhea. O2 saturation on room air was low. Patient will qualify for home oxygen. OBJECTIVE: Vital Signs: Noted. Neck: Supple. No JVD. Lungs: Bibasilar crepitations with occasional wheezing. Cardiovascular: S1 and S2 heard. Abdomen: Soft, globular. Bowel sounds present. SCHOOL SOCIAL WORKER: Alert, awake and able to move all 4 limbs. Overall, patient is doing better. LABORATORY DATA: Lab data done today as noted. BUN 29 and creatinine 1.5. The patient is status post aortobifemoral bypass, hypertension, COPD, history of CVA with expressive aphasia. Acute kidney injury improving. Atelectasis versus pneumonia. PLAN: Continue current treatment ambulation. I offered patient short-term rehab but patient was reluctant. cc: MD Walter Chowdhury MD
[2017-05-14] MEDS: CLINDAMYCIN 900 MG/NS 900 MG/50 ML IVPB IV SCH (07:27)
[2017-05-14] MEDS: DUONEB (A & A) INH PRN ×4 (07:40→19:12)
[2017-05-14] MEDS: ADVAIR 250/50 DISKUS INH SCH ×2 (07:40→19:12)
[2017-05-14] MEDS: PERIDEX MT SCH ×2 (08:48→21:53)
[2017-05-14] MEDS: LOPRESSOR PO SCH ×2 (08:49→21:53)
[2017-05-14] MEDS: PRINIVIL PO SCH (08:49)
[2017-05-14] MEDS: FLOMAX PO SCH (08:49)
[2017-05-14] MEDS: LASIX IV SCH (08:49)
[2017-05-14] MEDS: LOVENOX SUBQ SCH (10:19)
[2017-05-14] MEDS: NORCO-10 PO PRN ×2 (13:08→21:57)
[2017-05-15 06:03] LABS: POTASSIUM 4.3 mmol/L (3.5-5.1)
[2017-05-15] MEDS: PRILOSEC PO SCH (06:27)
--- NOTE | 2017-05-15 07:09 | PROGRESS NOTE ---
DATE: 05/15/2017 SUBJECTIVE: Mr. Turner is doing better. He denied any high-grade fever or chills. No nausea or vomiting. O2 saturation on room air is staying low. The patient is tolerating oxygen well. No nausea or vomiting. No diarrhea, blood, or mucus in the stool. OBJECTIVE: Vital signs: Noted. Neck: Supple. No JVD. Lungs: Bilateral good air entry present. Few basal crepitations. CVS: S1 and S2 heard. Abdomen: Soft, globular. Bowel sounds present. Wound is looking good. Extremities: No cyanosis, clubbing. No acute DVT. TRAVEL SERVICES PROFESSIONAL: Alert, awake able to move all 4 limbs. LAB DATA: Done today. Electrolytes fairly benign. BUN 25, creatinine 1.5. ASSESSMENT AND PLAN: Overall patient is doing better. The patient is status post aortofemoral bypass. 1. Does have chronic obstructive pulmonary disease. 2. Gastritis . 3. Reflux disease. 4. Hypertension. 5. Acute kidney injury. Overall patient is doing fair. We will continue current treatment. Close observation. Plan is to discharge patient to rehab soon. cc: MD Walter Chowdhury MD
[2017-05-15] MEDS: ADVAIR 250/50 DISKUS INH SCH (08:01)
--- NOTE | 2017-05-15 08:33 | DISCHARGE SUMMARY ---
ADMISSION DATE: 05/04/2017 DISCHARGE DATE: 05/15/2017 PRIMARY DISCHARGE DIAGNOSES: 1. Aortic occlusion with severe claudication. 2. Respiratory failure. 3. Severe chronic obstructive pulmonary disease. 4. History of supraventricular tachycardia. 5. Hypertension. PRINCIPAL PROCEDURE: Aortobifemoral bypass. HISTORY AND HOSPITAL COURSE: This 61-year-old admitted with severe claudication was found to have an aortic occlusion. He underwent an aortobifemoral bypass. He was placed in the intensive care unit postoperatively. He developed what appeared to be respiratory failure requiring oxygen levels and BiPAP. Early pneumonia was considered. He was placed on IV Levaquin and clindamycin. He was diuresed. Pulmonology was consulted. He gradually improved with BiPAP. We were able to start him on clear liquids on postop day 4. We transferred him out of the unit. We removed his Sharma, required replacement one time. He was placed on some tamsulosin which allowed him to not to have a Sharma replaced again. We have gradually advanced his diet. His oxygen requirements decreased with time. By 05/15, he was tolerating food. His bowels had moved. His wounds were fine. He was down to nasal oxygen with adequate O2 sats, and it was felt he could be transferred. Because of his deconditioning, it was felt he would benefit from rehabilitation placement, so he agreed to go to rehab. He can have his victoriano removed within a week after discharge. He will return to see me, Dr. Sales, in the office after release from rehabilitation. He will resume his usual home medicines. cc: Walter Sales MD [facility]
[2017-05-15] MEDS ORDERED: DUONEB (A & A) INH SCH (09:00)
[2017-05-15] MEDS: FLOMAX PO SCH (09:17)
[2017-05-15] MEDS: PERIDEX MT SCH (09:17)
[2017-05-15] MEDS: PRINIVIL PO SCH (09:17)
[2017-05-15] MEDS: LOPRESSOR PO SCH (09:17)
[2017-05-15] MEDS: LOVENOX SUBQ SCH (09:18)
[2017-05-15 11:44] VITALS: BP 106/46
== END 2017-05-15 14:56 ==
LOC: SURHOLD 03:55 → ICU 17:35 → 4N 05-12 06:03
PROVIDERS: ADMIT Surgery; ATTEND Surgery